=== PATIENT | male | born 1975 | race African-American/Black ===

== ENCOUNTER 2017-05-15 18:12 | Inpatient (IN) | payer OTHER ==
[~2017-05-15] VITALS: Ht 170.2 cm; Wt 95.0 kg
[~2017-05-15 18:12] MED LIST: Z.0.NO CURRENT MEDS
[2017-05-15 18:15] VITALS: BP 159/84; PULSE 104; RESP 16; TEMP 100.1; TEMP 98.4; O2SAT 98
[2017-05-15] MEDS ORDERED: SODIUM CHLOR 0.9% 1000 ML INJ 1,000 ML IV SCH (19:50)
[2017-05-15] MEDS ORDERED: IBUPROFEN 600 MG TAB PO ONE (20:00)
[2017-05-15] MEDS ORDERED: SODIUM CHLORIDE 0.9% FLUSH 10 ML FLUSH IV FLUSH PRN ×2 (20:00→23:00)
--- NOTE | 2017-05-15 20:00 | PD ---
HPI Chief Complaint: Complaint Time Seen by Provider: 19:41 Travel History International Travel<30 days: No Contact w/Intl Traveler<30days: No Traveled to known affect area: No History of Present Illness HPI Patient is a 42 year old male who presents to ER with complaints of fever with dysuria, urinary urgency and frequency for the past 2 days. Patient reports that he had a vasectomy on 04/27/[address] Rodriguez, reports that his incision sites look well and he has not had any problems after his surgery. Reports that he was at work today and began to feel "bad." Patient reports that he was at work and felt "bad" and "weak," reports that his work told him that he was febrile with a temperature. He has not taken any antipyretics prior to coming to the emergency room. Patient denies any chest pain, shortness of breath, cough or congestion. Denies any flank pain or back pain, with only complain of urinary urgency and frequency along with dysuria. Patient is currently on Keflex, reports that he completed his last dose of Keflex today as he was on this after his surgery. PFSH Past Medical History Cancer: No Cardiovascular Problems: No High Cholesterol: Yes Diabetes: No Hepatitis: No Hiatal Hernia: No Respiratory: No Thyroid Disease: No Past Surgical History Abdominal Surgery: Yes (gallbladder ) Genitourinary Surgery: Yes (vastectomy) Pacemaker: No Social History Alcohol Use: No Tobacco Use: No Substance Use: No Allergies-Medications (Allergen,Severity, Reaction): Coded Allergies: hydrocodone (Unverified Adverse Reaction, Mild, GI UPSET, 04/12/17) Reported Meds & Prescriptions Reported Meds & Active Scripts Active No Active Prescriptions or Reported Medications Review of Systems General / Constitutional: Positive: Fever, Chills Eyes: No: Visual changes HENT: No: Headaches Cardiovascular: No: Chest Pain or Discomfort Respiratory: No: Shortness of Breath Gastrointestinal: No: Abdominal Pain Genitourinary: Positive: Urgency, Frequency, Dysuria, No: Nocturia, Hesitancy, Discharge Musculoskeletal: No: Pain Skin: No Rash Neurologic: No: Weakness Psychiatric: No: Depression Endocrine: No: Polydipsia Hematologic/Lymphatic: No: Easy Bruising Physical Exam Narrative GENERAL: mild distress SKIN: Focused skin assessment warm/dry. HEAD: Atraumatic. Normocephalic. EYES: Pupils equal and round. No scleral icterus. No injection or drainage. ENT: No nasal bleeding or discharge. Mucous membranes pink and moist. NECK: Trachea midline. No JVD. CARDIOVASCULAR: Regular rate and rhythm. No murmur appreciated. RESPIRATORY: No accessory muscle use. Clear to auscultation. Breath sounds equal bilaterally. GASTROINTESTINAL: Abdomen soft, non-tender, nondistended. Hepatic and splenic margins not palpable. Patient with no flank pain : Scrotal incisions C/D/I with no drainage or redness or erythema MUSCULOSKELETAL: No obvious deformities. No clubbing. No cyanosis. No edema. NEUROLOGICAL: Awake and alert. No obvious cranial nerve deficits. Motor grossly within normal limits. Normal speech. PSYCHIATRIC: Appropriate mood and affect; insight and judgment normal. Data Data Last Documented VS Vital Signs Date Time Temp Pulse Resp B/P (MAP) Pulse Ox O2 Delivery O2 Flow Rate FiO2 05/15/17 21:57 102.0 99 20 128/66 (86) 97 Room Air Orders Orders Complete Blood Count With Diff (05/15/17 19:50) Comprehensive Metabolic Panel (05/15/17 19:50) Lactic Acid (05/15/17 19:50) Urinalysis - C+S If Indicated (05/15/17 19:50) Iv Access Insert/Monitor (05/15/17 19:50) Ecg Monitoring (05/15/17 19:50) Sodium Chlor 0.9% 1000 Ml Inj (Ns 1000 M (05/15/17 19:50) Sodium Chloride 0.9% Flush (Ns Flush) (05/15/17 20:00) Blood Culture (05/15/17 19:50) Ibuprofen (Motrin) (05/15/17 20:00) Urine Culture (05/15/17 20:00) Ceftriaxone Inj (Rocephin Inj) (05/15/17 21:15) Acetaminophen (Tylenol) (05/15/17 22:00) Labs Laboratory Tests Test 05/15/17 20:00 05/15/17 20:10 White Blood Count 17.6 TH/MM3 Red Blood Count 5.28 MIL/MM3 Hemoglobin 15.8 GM/DL Hematocrit 46.3 % Mean Corpuscular Volume 87.7 FL Mean Corpuscular Hemoglobin 29.9 PG Mean Corpuscular Hemoglobin Concent 34.1 % Red Cell Distribution Width 13.2 % Platelet Count 237 TH/MM3 Mean Platelet Volume 8.3 FL Neutrophils (%) (Auto) 84.4 % Lymphocytes (%) (Auto) 8.1 % Monocytes (%) (Auto) 7.2 % Eosinophils (%) (Auto) 0.1 % Basophils (%) (Auto) 0.2 % Neutrophils # (Auto) 14.9 TH/MM3 Lymphocytes # (Auto) 1.4 TH/MM3 Monocytes # (Auto) 1.3 TH/MM3 Eosinophils # (Auto) 0.0 TH/MM3 Basophils # (Auto) 0.0 TH/MM3 CBC Comment DIFF FINAL Differential Comment Urine Color YELLOW Urine Turbidity CLEAR Urine pH 5.5 Urine Specific [place] 1.024 Urine Protein NEG mg/dL Urine Glucose (UA) NEG mg/dL Urine Ketones NEG mg/dL Urine Occult Blood NEG Urine Nitrite NEG Urine Bilirubin NEG Urine Urobilinogen LESS THAN 2.0 MG/DL Urine Leukocyte Esterase SMALL Urine RBC 2 /hpf Urine WBC 18 /hpf Urine Squamous Epithelial Cells <1 /hpf Urine Bacteria RARE /hpf Urine Mucus FEW /lpf Microscopic Urinalysis Comment CULTURE INDICATED Blood Urea Nitrogen 12 MG/DL Creatinine 1.28 MG/DL Random Glucose 101 MG/DL Total Protein 8.3 GM/DL Albumin 4.2 GM/DL Calcium Level 9.6 MG/DL Alkaline Phosphatase 64 U/L Aspartate Amino Transf (AST/SGOT) 20 U/L Alanine Aminotransferase (ALT/SGPT) 71 U/L Total Bilirubin 1.2 MG/DL Sodium Level 137 MEQ/L Potassium Level 3.8 MEQ/L Chloride Level 102 MEQ/L Carbon Dioxide Level 28.1 MEQ/L Anion Gap 7 MEQ/L Estimat Glomerular Filtration Rate 74 ML/MIN Lactic Acid Level 1.8 mmol/L MDM Medical Decision Making Medical Screen Exam Complete: Yes Emergency Medical Condition: Yes Interpretation(s) Vital Signs Date Time Temp Pulse Resp B/P (MAP) Pulse Ox O2 Delivery O2 Flow Rate FiO2 05/15/17 18:15 100.1 104 16 159/84 (109) 98 Differential Diagnosis Differential includes UTI, pyelonephritis, postop wound infection, bacteremia, viral syndrome Narrative Course Patient is a 42-year-old male who presents to emergency room with complaints of dysuria, urinary urgency and frequency for the past 2 days. Patient is status post mastectomy reversal which was performed on April 27, 2017. Patient is currently on his last day of Keflex which was prescribed to him by his urologist , Dr. Rodriguez. Patient with a temperature 100.1, heart rate of 104, CBC, CMP, UA ordered. Blood cultures as well as lactic acid ordered. Vital Signs Date Time Temp Pulse Resp B/P (MAP) Pulse Ox O2 Delivery O2 Flow Rate FiO2 05/15/17 20:03 102.0 101 20 154/66 (95) 98 Room Air 05/15/17 18:15 100.1 104 16 159/84 (109) 98 Laboratory Tests Test 05/15/17 20:00 05/15/17 20:10 White Blood Count 17.6 TH/MM3 (4.0-11.0) Red Blood Count 5.28 MIL/MM3 (4.50-5.90) Hemoglobin 15.8 GM/DL (13.0-17.0) Hematocrit 46.3 % (39.0-51.0) Mean Corpuscular Volume 87.7 FL (80.0-100.0) Mean Corpuscular Hemoglobin 29.9 PG (27.0-34.0) Mean Corpuscular Hemoglobin Concent 34.1 % (32.0-36.0) Red Cell Distribution Width 13.2 % (11.6-17.2) Platelet Count 237 TH/MM3 (150-450) Mean Platelet Volume 8.3 FL (7.0-11.0) Neutrophils (%) (Auto) 84.4 % (16.0-70.0) Lymphocytes (%) (Auto) 8.1 % (9.0-44.0) Monocytes (%) (Auto) 7.2 % (0.0-8.0) Eosinophils (%) (Auto) 0.1 % (0.0-4.0) Basophils (%) (Auto) 0.2 % (0.0-2.0) Neutrophils # (Auto) 14.9 TH/MM3 (1.8-7.7) Lymphocytes # (Auto) 1.4 TH/MM3 (1.0-4.8) Monocytes # (Auto) 1.3 TH/MM3 (0-0.9) Eosinophils # (Auto) 0.0 TH/MM3 (0-0.4) Basophils # (Auto) 0.0 TH/MM3 (0-0.2) CBC Comment DIFF FINAL Differential Comment Urine Color YELLOW (YELLW/STRAW) Urine Turbidity CLEAR (CLEAR) Urine pH 5.5 (5.0-8.5) Urine Specific [place] 1.024 (1.002-1.035) Urine Protein NEG mg/dL (NEG-TRACE) Urine Glucose (UA) NEG mg/dL (NEG) Urine Ketones NEG mg/dL (NEG) Urine Occult Blood NEG (NEG) Urine Nitrite NEG (NEG) Urine Bilirubin NEG (NEG) Urine Urobilinogen LESS THAN 2.0 MG/DL (LESS Urine Leukocyte Esterase SMALL (NEG) Urine RBC 2 /hpf (0-3) Urine WBC 18 /hpf (0-5) Urine Squamous Epithelial Cells <1 /hpf (0-5) Urine Bacteria RARE /hpf (NONE) Urine Mucus FEW /lpf (OCC) Microscopic Urinalysis Comment CULTURE INDICATED Blood Urea Nitrogen 12 MG/DL (7-18) Creatinine 1.28 MG/DL (0.60-1.30) Random Glucose 101 MG/DL (74-106) Total Protein 8.3 GM/DL (6.4-8.2) Albumin 4.2 GM/DL (3.4-5.0) Calcium Level 9.6 MG/DL (8.5-10.1) Alkaline Phosphatase 64 U/L (45-117) Aspartate Amino Transf (AST/SGOT) 20 U/L (15-37) Alanine Aminotransferase (ALT/SGPT) 71 U/L (12-78) Total Bilirubin 1.2 MG/DL (0.2-1.0) Sodium Level 137 MEQ/L (136-145) Potassium Level 3.8 MEQ/L (3.5-5.1) Chloride Level 102 MEQ/L (98-107) Carbon Dioxide Level 28.1 MEQ/L (21.0-32.0) Anion Gap 7 MEQ/L (5-15) Estimat Glomerular Filtration Rate 74 ML/MIN (>89) Lactic Acid Level 1.8 mmol/L (0.4-2.0) Case reviewed with Dr. Rodriguez, patient's urologist. He is in agreement with [facility] as patient does meet sepsis criteria. Concern for possible prostatitis as well. He like to keep updated on patient status. Dr. Rodriguez's cell phone number: [phone] Case reviewed with Miller Zurita with S: will admit to Dr. Alonso Diagnosis Primary Impression: Sepsis Qualified Codes: A41.9 - Sepsis, unspecified organism Additional Impression: UTI (urinary tract infection) Qualified Codes: N30.00 - Acute cystitis without hematuria Admitting Information Admitting Physician Requests: Admit Scripts No Active Prescriptions or Reported Meds Elizabeth Melendez DO May 15, 2017 20:00
[2017-05-15 20:03] VITALS: BP 154/66; PULSE 101; RESP 20; TEMP 102; O2SAT 98
[2017-05-15 20:27] LABS: AUTOMATED NEUTROPHIL # 14.9 TH/MM3 (1.8-7.7); BASOPHIL % 0.2 % (0.0-2.0); EOSINOPHIL % 0.1 % (0.0-4.0); HEMATOCRIT 46.3 % (39.0-51.0); HEMO FLAGS DIFF FINAL; LYMPH % 8.1 % (9.0-44.0); LYMPHOCYTE # 1.4 TH/MM3 (1.0-4.8); MEAN CELL VOLUME 87.7 FL (80.0-100.0); MEAN CORPUSCULAR HEMOGLOBIN 29.9 PG (27.0-34.0); MEAN CORPUSCULAR HGB CONC 34.1 % (32.0-36.0); MONO % 7.2 % (0.0-8.0); NEUT % 84.4 % (16.0-70.0); PLATELET COUNT 237 TH/MM3 (150-450); RED BLOOD COUNT 5.28 MIL/MM3 (4.50-5.90); RED CELL DISTRIBUTION WIDTH 13.2 % (11.6-17.2); WHITE BLOOD COUNT 17.6 TH/MM3 (4.0-11.0)
[2017-05-15 20:30] LABS: BACTERIA, URINE RARE /hpf; BLOOD, URINE NEG (NEG); COMMENT (UR) CULTURE INDICATED; CULTURE IF INDICATED CULTURE INDICATED; GLUCOSE,URINE NEG (NEG); KETONE, URINE NEG (NEG); MUCUS URINE FEW /lpf (OCC); NITRITE,URINE NEG (NEG); PH, URINE 5.5 (5.0-8.5); SQUAMOUS EPITHELIAL CELL URINE <1 /hpf (0-5); URINE COLOR YELLOW (YELLW/STRAW)
[2017-05-15 20:41] LABS: ANION GAP 7 MEQ/L (5-15); AST (GOT) 20 U/L (15-37); BICARBONATE 28.1 MEQ/L (21.0-32.0); BLOOD UREA NITROGEN 12 MG/DL (7-18); CHLORIDE 102 MEQ/L (98-107); GLOMERULAR FILTRATION RATE 74 ML/MIN (>89); POTASSIUM 3.8 MEQ/L (3.5-5.1); SODIUM (NA) 137 MEQ/L (136-145)
[2017-05-15 20:42] LABS: ALT (GPT) 71 U/L (12-78)
[2017-05-15 20:44] LABS: ALKALINE PHOSPHATASE 64 U/L (45-117); TOTAL BILIRUBIN ADULT 1.2 MG/DL (0.2-1.0)
[2017-05-15] MEDS ORDERED: cefTRIAXone INJ 1,000 MG in SODIUM CHLORIDE 0.9% INJ 100 ML IV ONE (21:15)
[2017-05-15 21:57] VITALS: BP 128/66; PULSE 99; RESP 20; TEMP 102; O2SAT 97
[2017-05-15] MEDS ORDERED: ACETAMINOPHEN 325 MG TAB PO ONE (22:00)
[2017-05-15] MEDS ORDERED: LACTULOSE SYRUP 20 GM/30 ML CUP PO PRN (23:00)
[2017-05-15] MEDS ORDERED: NALOXONE HCL 0.4 MG/ML AMP IV PUSH PRN (23:00)
[2017-05-15] MEDS ORDERED: BISACODYL 10 MG SUPP RECTAL PRN (23:00)
[2017-05-15] MEDS ORDERED: MAGNESIUM HYDROXIDE SUSP 30 ML CUP PO PRN (23:00)
[2017-05-15] MEDS ORDERED: SENNOSIDES 8.6 MG TAB PO PRN (23:00)
[2017-05-15 23:09] VITALS: BP 127/68; PULSE 97; RESP 18; TEMP 101; O2SAT 98
[2017-05-15] MEDS: SODIUM CHLOR 0.9% 1000 ML INJ 1,000 ML IV SCH (23:10)
[2017-05-15] MEDS: ONDANSETRON HCL 4 MG/2 ML VIAL IVP PRN (23:10)
[2017-05-15] MEDS: ENOXAPARIN SODIUM 40 MG/0.4 ML SYRINGE SQ SCH (23:11)
[2017-05-15] MEDS ORDERED: ZOLPIDEM TARTRATE 5 MG TAB PO PRN (23:30)
[2017-05-16] MEDS: LEVOFLOXACIN 750 MG PREMIX INJ 150 ML IV SCH
[2017-05-16 00:30] VITALS: BP 116/59; PULSE 85; RESP 18; TEMP 97.2; O2SAT 97
--- NOTE | 2017-05-16 05:30 | MH ---
cc: MELISSA BROCK MD DATE OF ADMISSION: 05/15/2017 TIME OF VISIT 22:45 CHIEF COMPLAINT Fever, nausea. HISTORY OF PRESENT ILLNESS This is a 42-year-old male who underwent a vasectomy on 04/27/2017 by his urologist. The patient states he was doing very well after the surgery. He actually became sexually active two days prior to admission with his . He felt fine the next day. However, today he developed nausea, fever, appetite became poor. He developed some dysuria and some urinary urgency. He was on antibiotics; it was believed to be Keflex and he finished his last dose today. He ended coming into the hospital because of the fever and how poor he felt. His temperature was 102. He actually met sepsis criteria. He has been started on fluids, Tylenol and Rocephin and is being admitted to the hospital for further care. He is hungry but is still nauseated. Otherwise he has no pain. He has no redness or irritation at the incision site. He did not vomit; no chest pain, no shortness of breath, no sore throat, no diarrhea, no abdominal pain. MEDICATIONS ON ADMISSION On a regular basis, none. ALLERGIES NARCOTICS MAKE HIM SICK. PAST MEDICAL HISTORY Hyperlipidemia (had been on the medication he has been off for about a year per his doctor). PAST SURGICAL HISTORY 1. A torn biceps on the right. 2. Cholecystectomy. 3. Vasectomy. SOCIAL HISTORY He is in the . He is . No tobacco, alcohol or drugs. FAMILY HISTORY Noncontributory to this admission. REVIEW OF SYSTEMS A 12-point review of systems without other pertinent findings. PHYSICAL EXAMINATION VITAL SIGNS: T-max 102; heart rate was 104 on admission. Last blood pressure was 128/66, last heart rate was 99. O2 sat 97%. GENERAL: This is a 42-year-old male lying in bed, tended to by his ; he does not appear to be in any distress. HEENT: Mucous membranes are moist. No obvious intraoral lesions. NECK: Supple. No meningeal signs. CARDIOVASCULAR SYSTEM: Tachycardic. RESPIRATORY SYSTEM: Lungs are clear. GASTROINTESTINAL SYSTEM: Bowel sounds are present. There is no point tenderness, guarding or rebound. SYSTEM: No suprapubic tenderness. No CVA tenderness. MUSCULOSKELETAL SYSTEM: No edema. Distal pulses palpable. NEUROLOGICAL EXAMINATION: Awake, alert, oriented. Speech clear and fluent. Moving all extremities freely. INVESTIGATIONS White count 17.6, hemoglobin is 15.8, platelets are 237, neutrophils are 84.4. INR is 1. Sodium 137, potassium 3.8, BUN 12, creatinine 1.28, GFR is 74, bilirubin is 1.2. Total protein is 8.3. LFTs otherwise normal. Lactic acid was 1.8. Urinalysis shows a small amount of leukocyte esterase; WBC is at 18, bacteria rare. Culture is pending. Blood culture are drawn and are pending. IMPRESSION 1. Early sepsis on admission. 2. Urinary tract infection. 3. Recent vasectomy (on 04/27/2017). DISCUSSION 1. The patient is being admitted to Dr. Brock's service. Dr. Al Sanches, our physician, has spoken with the patient's urologist at [phone]. 2. I will continue with IV fluids, IV antibiotics, awaiting cultures. We will treat him symptomatically with IV antiemetics and antipyretics as needed. 3. DVT and GI prophylaxis will be provided. 4. The patient is currently not in any pain. 5. His labs will be monitored. 6. We will make further recommendations as his case progresses. ESTIMATED LENGTH OF STAY 2-3 days. ANTICIPATED DISCHARGE Home. Dictated by: Naldo Zurita PA-C MD HARRY Cortes/SHYANN /11:11 PM /5:08 AM seen, examined by myself, Dr Brock, today Discussed with patient Discussed with mid level provider Consult urology Continue IV antibiotics Follow blood cultures The exam, history, and the medical decision-making described in the above note were completed with the assistance of the mid-level provider. I reviewed the findings presented. I attest that I had a [id number] encounter with the patient on the same day, and personally performed and documented my assessment and findings in the medical record. DUNG
[2017-05-16 07:20] LABS: AUTOMATED NEUTROPHIL # 13.2 TH/MM3 (1.8-7.7); BASOPHIL % 0.2 % (0.0-2.0); EOSINOPHIL # 0.1 TH/MM3 (0-0.4); EOSINOPHIL % 0.4 % (0.0-4.0); HEMO FLAGS DIFF FINAL; LYMPH % 10.6 % (9.0-44.0); LYMPHOCYTE # 1.7 TH/MM3 (1.0-4.8); MEAN CELL VOLUME 89.4 FL (80.0-100.0); MEAN CORPUSCULAR HGB CONC 33.6 % (32.0-36.0); MONO % 6.9 % (0.0-8.0); NEUT % 81.9 % (16.0-70.0); PLATELET COUNT 180 TH/MM3 (150-450); RED BLOOD COUNT 4.81 MIL/MM3 (4.50-5.90); RED CELL DISTRIBUTION WIDTH 13.6 % (11.6-17.2); WHITE BLOOD COUNT 16.1 TH/MM3 (4.0-11.0)
[2017-05-16 07:56] LABS: BICARBONATE 27.7 MEQ/L (21.0-32.0); POTASSIUM 3.7 MEQ/L (3.5-5.1)
[2017-05-16 08:00] VITALS: BP 116/68; PULSE 87; RESP 16; TEMP 99.1; O2SAT 99
[2017-05-16] MEDS: SODIUM CHLOR 0.9% 1000 ML INJ 1,000 ML IV SCH ×2 (08:53→18:53)
[2017-05-16] MEDS: SODIUM CHLORIDE 0.9% FLUSH 10 ML FLUSH IV FLUSH SCH ×2 (09:00→20:55)
[2017-05-16] MEDS: FAMOTIDINE 20 MG TAB PO SCH ×2 (09:26→20:55)
[2017-05-16 12:00] VITALS: BP 114/73; PULSE 88; RESP 18; TEMP 100.1; O2SAT 99
[2017-05-16 16:00] VITALS: BP 113/65; PULSE 99; RESP 16; TEMP 100.4; O2SAT 97
[2017-05-16] MEDS: ACETAMINOPHEN 325 MG TAB PO PRN (16:02)
[2017-05-16 20:00] VITALS: BP 119/73; PULSE 90; RESP 20; TEMP 98.7; O2SAT 99
[2017-05-16] MEDS ORDERED: cefTRIAXone INJ 1,000 MG in SODIUM CHLORIDE 0.9% INJ 100 ML IV SCH (22:00)
[2017-05-17] VITALS: BP 112/72; PULSE 98; RESP 20; TEMP 99.6; O2SAT 97
[2017-05-17] MEDS: LEVOFLOXACIN 750 MG PREMIX INJ 150 ML IV SCH
[2017-05-17] MEDS: ENOXAPARIN SODIUM 40 MG/0.4 ML SYRINGE SQ SCH ×2 (00:01→21:09)
[2017-05-17] MEDS: ACETAMINOPHEN 325 MG TAB PO PRN ×3 (00:40→21:00)
[2017-05-17] MEDS: SODIUM CHLOR 0.9% 1000 ML INJ 1,000 ML IV SCH ×2 (04:53→15:07)
[2017-05-17 07:55] LABS: AUTOMATED NEUTROPHIL # 11.7 TH/MM3 (1.8-7.7); BASOPHIL % 0.3 % (0.0-2.0); EOSINOPHIL # 0.1 TH/MM3 (0-0.4); EOSINOPHIL % 0.5 % (0.0-4.0); HEMATOCRIT 42.5 % (39.0-51.0); HEMO FLAGS DIFF FINAL; LYMPH % 13.2 % (9.0-44.0); MEAN CELL VOLUME 88.6 FL (80.0-100.0); MEAN CORPUSCULAR HEMOGLOBIN 30.2 PG (27.0-34.0); MEAN CORPUSCULAR HGB CONC 34.1 % (32.0-36.0); MONO % 7.8 % (0.0-8.0); NEUT % 78.2 % (16.0-70.0); PLATELET COUNT 185 TH/MM3 (150-450); RED CELL DISTRIBUTION WIDTH 13.5 % (11.6-17.2); WHITE BLOOD COUNT 14.9 TH/MM3 (4.0-11.0)
[2017-05-17 08:00] VITALS: BP 116/55; PULSE 92; RESP 16; TEMP 99.6; O2SAT 97
[2017-05-17] MEDS: FAMOTIDINE 20 MG TAB PO SCH ×2 (08:15→21:00)
[2017-05-17 08:23] LABS: BICARBONATE 30.1 MEQ/L (21.0-32.0)
[2017-05-17] MEDS: SODIUM CHLORIDE 0.9% FLUSH 10 ML FLUSH IV FLUSH SCH ×2 (09:00→21:00)
--- NOTE | 2017-05-17 09:36 | HHI.PR ---
Subjective Subjective Remarks Up in chair Ambulated briefly around in [place] but tires easily in room Low-grade fever continues Review of Systems Constitutional Constitutional: Fever, Fatigue, Weakness Constitutional Remarks 10 point ROS done positives noted GI/Abdomen GI/Abdominal Exam: Nausea (mild after ambulating) GI/Abdomen Remarks Decreased appetite Musculoskeletal MS: Weakness Psychiatric Psychiatric: Normal Mood Vitals/Results Vital Signs Vital Signs Date Time Temp Pulse Resp B/P (MAP) Pulse Ox O2 Delivery O2 Flow Rate FiO2 05/17/17 08:00 99.6 92 16 116/55 (75) 97 05/17/17 00:00 99.6 98 20 112/72 (85) 97 05/16/17 20:00 98.7 90 20 119/73 (88) 99 05/16/17 16:00 100.4 99 16 113/65 (81) 97 05/16/17 12:00 100.1 88 18 114/73 (87) 99 CBC/BMP: 05/17/17 0604 05/17/17 0604 Lab Results Laboratory Tests Test 05/17/17 06:04 White Blood Count 14.9 TH/MM3 Red Blood Count 4.80 MIL/MM3 Hemoglobin 14.5 GM/DL Hematocrit 42.5 % Mean Corpuscular Volume 88.6 FL Mean Corpuscular Hemoglobin 30.2 PG Mean Corpuscular Hemoglobin Concent 34.1 % Red Cell Distribution Width 13.5 % Platelet Count 185 TH/MM3 Mean Platelet Volume 8.6 FL Neutrophils (%) (Auto) 78.2 % Lymphocytes (%) (Auto) 13.2 % Monocytes (%) (Auto) 7.8 % Eosinophils (%) (Auto) 0.5 % Basophils (%) (Auto) 0.3 % Neutrophils # (Auto) 11.7 TH/MM3 Lymphocytes # (Auto) 2.0 TH/MM3 Monocytes # (Auto) 1.2 TH/MM3 Eosinophils # (Auto) 0.1 TH/MM3 Basophils # (Auto) 0.0 TH/MM3 CBC Comment DIFF FINAL Differential Comment Blood Urea Nitrogen 10 MG/DL Creatinine 1.25 MG/DL Random Glucose 83 MG/DL Calcium Level 8.8 MG/DL Carbon Dioxide Level 30.1 MEQ/L Estimat Glomerular Filtration Rate 76 ML/MIN Microbiology Microbiology 05/16/17 Aerobic Blood Culture, Received Pending 05/16/17 Anaerobic Blood Culture, Received Pending 05/16/17 Aerobic Blood Culture, Received Pending 05/16/17 Anaerobic Blood Culture, Received Pending Physical Exam General General Appearance: Well Developed, Well Nourished, Anxious (mild) Eyes Eye Exam: Pupils Equal, Pupils Reactive Ears & Nose Ears & Nose Exam: Nasal Mucosa [place] Throat Throat Exam: Oral Mucosa [place] & Moist Neck Neck Exam: Neck Supple Pulmonary Resp Exam: Clear Bilaterally Cardiology CV Exam: Regular Gastrointestinal/Abdomen GI Exam: Soft, Non-Tender, Bowel Sounds Present GI Remarks Mild nausea no vomiting after ambulating Doesn't care for food preferences, patient changed to regular adult diet Genitourinary Remarks Recent vasectomy Musculoskeletal MS Exam: Joints Intact Integumentary Skin Exam: Warm, Dry, Intact Extremeties Extremities Exam: No Edema Neurologic Neuro Exam: Awake, Oriented, Speech Clear Assessment/Plan Assessment/Plan 1. Early sepsis on admission. 2. Urinary tract infection. Escherichia coli 3. Recent vasectomy (on 04/27/2017). 4. Debility, mild 5. Leukocytosis Vital signs reviewed, patient continues to have low-grade fever 99.6, blood pressure normal trends Labs, ordered for in the morning BMP and CBC Escherichia coli positive culture UTI Patient currently receiving IV antibiotics Rocephin and Levaquin, taking by mouth fluids well, encouraged to continue drinking Ambulated in [place] but tires very easily, secondary to fever, infection Encouraged to keep moving around slow gradual, and frequent rest Urology , spoke with on-call physician, patient is recently postop vasectomy on 04-27, patient had surgical procedure in [place], contact information given to nurse in case there needs to be any physician to physician information given. Contact has been with patient's current urology in the emergency room. Urology will see only if needed, continue antibiotics, treatment of UTI Discussed with patient and his Discussed with nurse Discussed with Dr. Evans, seen on his behalf Ophelia Pratt May 17, 2017 09:36
[2017-05-17 12:00] VITALS: BP 122/69; PULSE 93; RESP 16; TEMP 99; O2SAT 99
[2017-05-17 16:00] VITALS: BP 123/74; PULSE 102; RESP 16; TEMP 101.8; O2SAT 98
[2017-05-17 17:00] VITALS: TEMP 98.4
[2017-05-17 20:00] VITALS: BP 144/80; PULSE 99; RESP 18; TEMP 101.1; O2SAT 98
[2017-05-17] MEDS: ONDANSETRON HCL 4 MG/2 ML VIAL IVP PRN (20:59)
[2017-05-17] MEDS: CEFEPIME INJ 2,000 MG in SODIUM CHLORIDE 0.9% INJ 100 ML IV SCH (21:00)
[2017-05-18] VITALS: BP 120/75; PULSE 103; RESP 18; TEMP 100.2; O2SAT 98
[2017-05-18] MEDS: LEVOFLOXACIN 750 MG PREMIX INJ 150 ML IV SCH (00:07)
[2017-05-18] MEDS: SODIUM CHLOR 0.9% 1000 ML INJ 1,000 ML IV SCH ×3 (00:53→20:53)
[2017-05-18 07:14] LABS: HEMATOCRIT 42.5 % (39.0-51.0); MEAN CORPUSCULAR HGB CONC 34.2 % (32.0-36.0); PLATELET COUNT 179 TH/MM3 (150-450); RED BLOOD COUNT 4.83 MIL/MM3 (4.50-5.90); RED CELL DISTRIBUTION WIDTH 13.1 % (11.6-17.2); REVIEW FLAG FINAL
[2017-05-18 07:22] LABS: BICARBONATE 26.9 MEQ/L (21.0-32.0); POTASSIUM 3.7 MEQ/L (3.5-5.1)
[2017-05-18 08:00] VITALS: BP 125/71; PULSE 87; RESP 16; TEMP 98.9; O2SAT 98
[2017-05-18] MEDS: SODIUM CHLORIDE 0.9% FLUSH 10 ML FLUSH IV FLUSH SCH ×2 (09:00→21:00)
--- NOTE | 2017-05-18 09:47 | HHI.PR ---
Subjective Subjective Remarks Febrile overnight, max 101.1 Complaining of painful urination Minimal drainage from surgical incision, examined with RN present. No exudate noted, surgical site intact No chest pain No shortness of breath Tolerating diet well at bedside Review of Systems Constitutional Constitutional Remarks 12 point review of systems completed, negative except as noted above Vitals/Results Vital Signs Vital Signs Date Time Temp Pulse Resp B/P (MAP) Pulse Ox O2 Delivery O2 Flow Rate FiO2 05/18/17 08:00 98.9 87 16 125/71 (89) 98 05/18/17 00:00 100.2 103 18 120/75 (90) 98 05/17/17 20:00 101.1 99 18 144/80 (101) 98 05/17/17 17:00 98.4 05/17/17 16:00 101.8 102 16 123/74 (90) 98 05/17/17 12:00 99.0 93 16 122/69 (86) 99 CBC/BMP: 05/18/17 0534 05/18/17 0534 Lab Results Laboratory Tests Test 05/18/17 05:34 White Blood Count 7.0 TH/MM3 Red Blood Count 4.83 MIL/MM3 Hemoglobin 14.5 GM/DL Hematocrit 42.5 % Mean Corpuscular Volume 88.0 FL Mean Corpuscular Hemoglobin 30.0 PG Mean Corpuscular Hemoglobin Concent 34.2 % Red Cell Distribution Width 13.1 % Platelet Count 179 TH/MM3 Mean Platelet Volume 8.4 FL Blood Urea Nitrogen 8 MG/DL Creatinine 1.07 MG/DL Random Glucose 92 MG/DL Calcium Level 8.9 MG/DL Sodium Level 138 MEQ/L Potassium Level 3.7 MEQ/L Chloride Level 104 MEQ/L Carbon Dioxide Level 26.9 MEQ/L Anion Gap 7 MEQ/L Estimat Glomerular Filtration Rate 91 ML/MIN Physical Exam General General Appearance: Well Developed, Well Nourished, No Acute Distress, Comfortable Eyes Eye Exam: Pupils Equal, Pupils Reactive Ears & Nose Ears & Nose Exam: Nasal Mucosa [place] Throat Throat Exam: Oral Mucosa [place] & Moist Neck Neck Exam: Neck Supple Pulmonary Resp Exam: Clear Bilaterally Cardiology CV Exam: Regular Gastrointestinal/Abdomen GI Exam: Soft, Non-Tender, Bowel Sounds Present Genitourinary Remarks Status post vasectomy, surgical site intact. No exudate. Musculoskeletal MS Exam: Joints Intact Integumentary Skin Exam: Warm, Dry, Intact Extremeties Extremities Exam: No Edema, Pedal Pulses Palpable Neurologic Neuro Exam: Alert, Awake, Oriented, Speech Clear, Moving All Extremities, No Focal Deficits Psychiatric Psych Exam: Appropriate Responses VTE Prophylaxis VTE Prophylaxis Device: SCDs Assessment/Plan Assessment/Plan 1. Early sepsis on admission. 2. Urinary tract infection. Escherichia coli 3. Recent vasectomy (on 04/27/2017). 4. Debility, mild 5. Leukocytosis Plan: Continue with antibiotics-cefepime added yesterday, continue Levaquin. Rocephin discontinued Urine culture positive for Escherichia coli Blood cultures-- no growth yet Urology consultation pending WBC trending down Remains febrile Continue with IV fluids, encourage by mouth intake Continue with Lovenox for DVT prophylaxis Continue with Pepcid for GI prophylaxis Continue to monitor fever and white blood count We'll wait for urology input Discharge planning 1-2 days Discussed with patient and his Discussed with nurse Discussed with Dr. Evans This patient was seen by myself and Dr. Evans, this note is written on his behalf Skylar Hoffman May 18, 2017 09:47
[2017-05-18] MEDS: FAMOTIDINE 20 MG TAB PO SCH ×2 (09:53→21:00)
[2017-05-18] MEDS: CEFEPIME INJ 2,000 MG in SODIUM CHLORIDE 0.9% INJ 100 ML IV SCH ×2 (10:01→20:57)
[2017-05-18 12:00] VITALS: BP 132/85; PULSE 91; RESP 17; TEMP 99; O2SAT 97
[2017-05-18 16:00] VITALS: BP 122/74; PULSE 95; RESP 16; TEMP 100; O2SAT 97
[2017-05-18] MEDS: ACETAMINOPHEN 325 MG TAB PO PRN (16:46)
[2017-05-18 20:00] VITALS: BP 136/88; PULSE 90; RESP 18; TEMP 99.2; O2SAT 99
[2017-05-18] MEDS ORDERED: DIATRIZOATE MEGLUM/DIATRIZOATE SOD 9 ML CUP PO ONE (20:00)
[2017-05-18] MEDS ORDERED: IOHEXOL 350 MG/ML 10 ML VIAL (for RAD DIAG) IVCONTRAST ONE (22:50)
--- NOTE | 2017-05-18 23:36 | RADRPT ---
EXAM DATE/TIME: 05/18/2017 22:39 [facility] COMPARISON: No previous studies available for comparison. INDICATIONS : Bilateral lower quadrant with nausea, vomiting and fever. IV CONTRAST: 100 cc Omnipaque 350 (iohexol) IV ORAL CONTRAST: Prescribed oral contrast ingested. RADIATION DOSE: 14.20 CTDIvol (mGy) MEDICAL HISTORY : None SURGICAL HISTORY : Cholecystectomy. ENCOUNTER: Initial ACUITY: 3 days PAIN SCALE: 5/10 LOCATION: Bilateral lower quadrant TECHNIQUE: Volumetric scanning of the abdomen and pelvis was performed. Using automated exposure control and ad justment of the mA and/or kV according to patient size, radiation dose was kept as low as reasonably achievable to obtain optimal diagnostic quality images. DICOM format image data is available electro nically for review and comparison. FINDINGS: LOWER LUNGS: The visualized lower lungs are clear. LIVER: Liver is enlarged and demonstrates diffuse fatty infiltration. No focal hepatic mass. There is no dil ation of the biliary tree. No calcified gallstones. Status post cholecystectomy. SPLEEN: Minimal splenomegaly is noted. PANCREAS: Within normal limits. KIDNEYS: Normal in size and shape. There is no mass, stone or hydronephrosis. ADRENAL GLANDS: Within normal limits. VASCULAR: There is no aortic aneurysm. BOWEL/MESENTERY: The stomach, small bowel, and colon demonstrate no acute abnormality. There is no free intraperitone al air or fluid. ABDOMINAL WALL: Within normal limits. RETROPERITONEUM: There is no lymphadenopathy. BLADDER: No wall thickening or mass. REPRODUCTIVE: The prostate and seminal vesicles are enlarged. The fat plane surrounding the structures demonstrate streakiness suggesting inflammatory change and possible prostatitis. Clinical correlation is recommen ded. INGUINAL: There is no lymphadenopathy or hernia. MUSCULOSKELETAL: Within normal limits for patient age. CONCLUSION: 1. Prostate and seminal vesicles are enlarged. The fat plane surrounding the structures demonstrate s treakiness suggesting inflammatory change and possible prostatitis. Clinical correlation is recommend ed. 2. Enlarged fatty liver. 3. Minimal splenomegaly. Tay Vaca MD on May 18, 2017 at 23:31 Board Certified Radiologist. This report was verified electronically.
[2017-05-19] VITALS: BP 116/67; PULSE 82; RESP 18; TEMP 99.5; O2SAT 98
[2017-05-19] MEDS: LEVOFLOXACIN 750 MG PREMIX INJ 150 ML IV SCH (00:24)
[2017-05-19] MEDS: ENOXAPARIN SODIUM 40 MG/0.4 ML SYRINGE SQ SCH (00:24)
[2017-05-19 05:12] LABS: BICARBONATE 27.2 MEQ/L (21.0-32.0); POTASSIUM 3.8 MEQ/L (3.5-5.1)
[2017-05-19] MEDS: SODIUM CHLOR 0.9% 1000 ML INJ 1,000 ML IV SCH (06:53)
[2017-05-19 07:45] VITALS: BP 124/82; PULSE 76; RESP 12; TEMP 98; O2SAT 95
[2017-05-19] MEDS: CEFEPIME INJ 2,000 MG in SODIUM CHLORIDE 0.9% INJ 100 ML IV SCH (08:00)
[2017-05-19] MEDS: SODIUM CHLORIDE 0.9% FLUSH 10 ML FLUSH IV FLUSH SCH (08:07)
--- NOTE | 2017-05-19 11:40 | HHI.PR ---
Subjective Subjective Remarks last fever at 1600 yesterday 100 minimal drainage from surgical site, appears like old blood, minimal -noted on 2x2 gauze. pt. examined with RN and nursing home aide present no purulent drainage noted mid section of incision noted slightly dehisced no cp no sob no abd. pain no diarrhea feeling better anxious to go home Review of Systems Constitutional Constitutional Remarks 12 point review of systems completed, negative except as noted above Vitals/Results Vital Signs Vital Signs Date Time Temp Pulse Resp B/P (MAP) Pulse Ox O2 Delivery O2 Flow Rate FiO2 05/19/17 07:45 98.0 76 12 124/82 (96) 95 05/19/17 00:00 99.5 82 18 116/67 (83) 98 05/18/17 20:00 99.2 90 18 136/88 (104) 99 05/18/17 16:00 100.0 95 16 122/74 (90) 97 05/18/17 12:00 99.0 91 17 132/85 (101) 97 CBC/BMP: 05/18/17 0534 05/19/17 0434 Lab Results Laboratory Tests Test 05/19/17 04:34 Blood Urea Nitrogen 9 MG/DL Creatinine 1.08 MG/DL Random Glucose 102 MG/DL Calcium Level 9.0 MG/DL Sodium Level 139 MEQ/L Potassium Level 3.8 MEQ/L Chloride Level 105 MEQ/L Carbon Dioxide Level 27.2 MEQ/L Anion Gap 7 MEQ/L Estimat Glomerular Filtration Rate 90 ML/MIN Physical Exam General General Appearance: Well Developed, Well Nourished, No Acute Distress, Comfortable Eyes Eye Exam: Pupils Equal, Pupils Reactive Ears & Nose Ears & Nose Exam: Nasal Mucosa [place] Throat Throat Exam: Oral Mucosa [place] & Moist Neck Neck Exam: Neck Supple Pulmonary Resp Exam: Clear Bilaterally Cardiology CV Exam: Regular Gastrointestinal/Abdomen GI Exam: Soft, Non-Tender, Bowel Sounds Present Genitourinary Remarks mid area on surgical site with slight dehiscence. no drainage. no areas of fluctuance Musculoskeletal MS Exam: Joints Intact Integumentary Skin Exam: Warm, Dry, Intact Extremeties Extremities Exam: No Edema, Pedal Pulses Palpable Neurologic Neuro Exam: Alert, Awake, Oriented, Speech Clear, Moving All Extremities, No Focal Deficits Psychiatric Psych Exam: Appropriate Responses VTE Prophylaxis VTE Prophylaxis Device: SCDs Assessment/Plan Assessment/Plan 1. Early sepsis on admission. 2. Urinary tract infection. Escherichia coli 3. Recent vasectomy (on 04/27/2017). 4. Debility, mild 5. Leukocytosis Plan: Continue with antibiotics-cefepime added yesterday, continue Levaquin. Rocephin discontinued Urine culture positive for Escherichia coli Blood cultures-- no growth yet Urology personal property appraiser d/w STEREOTYPE CASTER on Tuesday, no need for consult. Pt. with UTI ED spoke to patient's urologist in English. Phone number provided WBC trending down-cbc pending Fever 100 yesterday, none today slight dehiscence noted on surgical site, scant amount of old blood. No purulent drainage. No erythema overall improved, BC negative Continue with Lovenox for DVT prophylaxis Continue with Pepcid for GI prophylaxis Continue to monitor fever and white blood count will call his urologist to discuss poss dc today needs to f/u with urology next week Discussed with patient and his Discussed with nurse Discussed with Dr. Evans This patient was seen by myself and Dr. Evans, this note is written on his behalf Skylar Hoffman May 19, 2017 11:40
--- NOTE | 2017-05-19 12:19 | HHI.DCPOC ---
Discharge Care Plan Diagnosis: (1) UTI (urinary tract infection) Your Health Problems Are: Urinary Difficulties Goals to Promote Your Health * To prevent worsening of your condition and complications * To maintain your health at the optimal level Directions to Meet Your Goals Take your medications as prescribed Follow your dietary instruction Follow activity as directed Keep your appointments as scheduled Take your immunizations and boosters as scheduled If your symptoms worsen call your PCP, if no PCP go to Urgent Care Center or Emergency Room Smoking is Dangerous to Your Health. Avoid second hand smoke Call the 24-hour hour crisis hotline for domestic abuse at Skylar Hoffman. ESTHER May 19, 2017 12:19
[2017-05-19] MEDS ORDERED: CEFU1TAB20 PO (14:07)
[2017-05-19 14:20] VITALS: BP 126/82; PULSE 84; RESP 16; TEMP 98.9; O2SAT 99
[2017-05-19 16:00] VITALS: BP 120/67; PULSE 90; RESP 17; TEMP 99.1; O2SAT 98
--- NOTE | 2017-05-19 17:38 | HHI.DS ---
Discharge Summary Admission Date May 15, 2017 at 23:43 Discharge Date: May 19, 2017 Admitting Diagnosis Sepsis, UTI (1) Sepsis ICD Codes: A41.9 - Sepsis, unspecified organism Status: Acute (2) UTI (urinary tract infection) ICD Codes: N39.0 - Urinary tract infection, site not specified Status: Acute (3) recent vasectomy reversal Status: Acute (4) possible prostatitis Status: Acute (5) Fever ICD Codes: R50.9 - Fever, unspecified Status: Acute CBC/BMP: 05/18/17 0534 05/19/17 0434 Significant Findings Laboratory Tests Test 05/17/17 06:04 05/18/17 05:34 05/19/17 04:34 White Blood Count 14.9 TH/MM3 (4.0-11.0) Neutrophils (%) (Auto) 78.2 % (16.0-70.0) Neutrophils # (Auto) 11.7 TH/MM3 (1.8-7.7) Monocytes # (Auto) 1.2 TH/MM3 (0-0.9) Anion Gap 3 MEQ/L (5-15) Estimat Glomerular Filtration Rate 76 ML/MIN (>89) Imaging Last Impressions Abdomen/Pelvis CT 05/18/17 0000 Signed Impressions: Service Date/Time: Thursday, May 18, 2017 22:39 - CONCLUSION: 1. Prostate and seminal vesicles are enlarged. The fat plane surrounding the structures demonstrate streakiness suggesting inflammatory change and possible prostatitis. Clinical correlation is recommended. 2. Enlarged fatty liver. 3. Minimal splenomegaly. Tay Vaca MD Hospital Course This is a 42-year-old male who underwent a vasectomy reversal on 04/27/2017 by his urologist. The patient states he was doing very well after the surgery. He actually became sexually active two days prior to admission with his . He felt fine the next day. However, today he developed nausea, fever, appetite became poor. He developed some dysuria and some urinary urgency. He was on antibiotics; it was believed to be Keflex and he finished his last dose today. He ended coming into the hospital because of the fever and how poor he felt. His temperature was 102. He actually met sepsis criteria. He was started on fluids, Tylenol and Rocephin and was admitted to the hospital for further care. He was hungry but is still nauseated. Otherwise he had no pain. He had no redness or irritation at the incision site. He did not vomit; no chest pain, no shortness of breath, no sore throat, no diarrhea, no abdominal pain. Patient was evaluated in emergency room. INVESTIGATIONS White count 17.6, hemoglobin is 15.8, platelets are 237, neutrophils are 84.4. INR is 1. Sodium 137, potassium 3.8, BUN 12, creatinine 1.28, GFR is 74, bilirubin is 1.2. Total protein is 8.3. LFTs otherwise normal. Lactic acid was 1.8. Urinalysis shows a small amount of leukocyte esterase; WBC is at 18, bacteria rare. Culture is pending. Blood culture are drawn and are pending. Pt. was admitted with: 1. Early sepsis on admission. 2. Urinary tract infection. Escherichia coli 3. Recent vasectomy (on 04/27/2017). 4. Debility, mild 5. Leukocytosis 6. Possible prostatitis During the course of the hospitalization, the following took place: She was continued on IV fluids. Rocephin was discontinued and he was started on cefepime. He was also continue Levaquin. Urine culture positive for Escherichia coli Blood cultures blood cultures remain negative Urology talent development consultant was consulted, discussed with attending's TUBE OPERATOR. No need for consult. Pt. with UTI ED spoke to patient's urologist in [place]. Phone number provided for continued consultation. Patient was monitored closely, he remained febrile. WBC started trending down Patient felt better, debility was resolved. To call site was evaluated, slight dehiscence noted on surgical site, scant amount of old blood. No purulent drainage. No erythema overall improved, BC negative Care was discussed with Dr. Stephens, informed of hospital course, culture results and CT findings. Recommended to continue abx for at least 3-4 weeks due to concern for poss proctatitis. pt. can f/u in 3-4 weeks, already had appointment. Spoke to pt. in detail. Activity instruction, monitor for s/s infection, fever, inc. pain ,redness, drainage. Needs come back to ED or see urologist. Instructed not to engage in sexual intercourse for at least 1-2 weeks. Was put on appropriate DVT and GI prophylaxis Patient was discharge in stable condition, his questions were answered in detail Instructed to follow-up with urology in 3-4 weeks Diet heart healthy Activity as instructed Pt Condition on Discharge: Stable Discharge Disposition: Discharge Home Discharge Instructions DIET: Follow Instructions for: Heart Healthy Diet Activities you can perform: Weight Bearing as [place] Follow up Referrals: Urology - 10 Days with Enrique Goldberg MD New Medications: Cefuroxime (Cefuroxime) 500 Mg Tab 500 MG PO BID for Infection for 30 Days, #60 TAB 0 Refills Skylar Hoffman May 19, 2017 17:38
== END 2017-05-19 17:31 | disposition home or self-care (01) | DRG 872 ==
LOC: NEPC 18:12 → NEDA 22:22 → INTOOBSV 22:22 → OBSVTOIN 23:43 → N07B 05-16 01:11
PROVIDERS: ADMIT Specialist; ATTEND Specialist
DX: A41.9 Sepsis, unspecified organism (principal); N30.00 Acute cystitis without hematuria; E78.5 Hyperlipidemia, unspecified; B96.20 Unspecified Escherichia coli [E. coli] as the cause of diseases classified elsewhere; K62.89 Other specified diseases of anus and rectum
CPT/HCPCS: 74177; 80048; 80053; 81001; 83605; 85025; 85027; 87040; 87077; 87086; 87186; 96361; 96365; J0692; J0696; J1650; J1956; J2405; J7030; Q9963; Q9967